=== PATIENT | male | born 1980 | race Caucasian/White ===

== ENCOUNTER → 2017-08-22 | Outpatient (CLI) | payer BC ==
[~2017-08-22] MED LIST: CONTRAST GIVEN MC PRN; IOHEXOL 180 MG/ML 10 ML VIAL. INT ART ONE; LIDOCAINE 1% Multi-Dose 20 ML VIAL. ID ONE
--- NOTE | 2017-08-22 13:33 | KCIC ---
CT arthrogram of the left wrist HISTORY: Scaphoid fracture. Pain, initially on the radial side, now throughout the wrist. Injury June 18, 2017. TECHNIQUE: Standard axial imaging with multiplanar reformatted images. In addition, dedicated oblique sagittal and oblique coronal images are obtained through the scaphoid. Exposure: One or more of the following individualized dose reduction techniques were utilized for this examination: 1. Automated exposure control 2. Adjustment of the mA and/or kV according to patient size 3. Use of iterative reconstruction technique. FINDINGS: Small cortical fracture at the posterior waist of scaphoid, best seen on the oblique sagittal images, series 615, image 5 and 6. There are several mild serpiginous linear lucencies at the proximal pole of the scaphoid. These does not have the typical appearance of an acute fracture. This could represent some focal osteopenia or possibly atypical subacute fracture. There is no evidence of typical transverse fracture across the scaphoid body. Lucency identified within the distal triquetrum, with loss of definition of the distal and posterior cortex. Considerations include a carpal cyst versus a subacute fracture. No displacement. There is a very small cortical fracture fragment adjacent to the distal lateral capitate, coronal series 604, images 7 and 8. In addition, there is a small coronally oriented subchondral bone defect at the distal capitate articular surface laterally, sagittal series 603, image 17, suspicious for a very small nondisplaced fracture. Borderline widening of the scapholunate interosseous distance. There appears to be an increased scapholunate angle. No evidence of contrast accumulation within or across the scapholunate ligament. No evidence of lunotriquetral ligament tear. The triangular fibrocartilage appears intact. IMPRESSION: 1. Small cortical fracture at the posterior waist of the scaphoid. There are some subtle serpiginous lucencies within the proximal pole of the scaphoid, questionable significance but possibly some additional nondisplaced fractures. There is no evidence of atypical transverse fracture across the scaphoid body. 2. Small cortical fracture at the lateral aspect of the distal capitate bone, with possible additional small intra-articular fracture at the distal lateral articular surface. 3. Ill-defined lucency at the distal triquetrum, could represent carpal cyst versus nondisplaced nonacute fracture. 4. Mild widening of the scapholunate distance with an apparent increase in the scapholunate angle. However, no arthrographic evidence of contrast across the ligament to indicate a tear. Note that a chronic tear with scarring or granulation can prevent contrast transit however. Electronically signed by: Wellington Mancera MD (08/22/2017 1:29 PM) [email or web address]
--- NOTE | 2017-08-22 13:36 | KCIC ---
PROCEDURE Left?wrist injection using fluoroscopic guidance, prior to CT HISTORY: Pain TECHNIQUE The procedure was explained to the patient as were potential risks, including among others infection, bleeding or allergic reaction. All questions were answered. Informed written consent was obtained. The wrist was prepped and draped in the usual sterile manner. Following administration of local anesthetic with 1% lidocaine , a 25 gauge needle was advanced into the radiocarpal space. Following negative aspiration, 2 cc of a solution of 5cc 1 percent lidocaine and 15 cc Omnipaque 180 intravenous contrast was injected without difficulty during dynamic digital subtraction imaging. The needle was removed. Additional post exercise images were obtained. The procedure was then repeated, with injection of 1 cc of contrast mixture into the distal radioulnar joint. There was good hemostasis at the injection site. The patient left in stable condition without immediate complication. The patient was given postprocedural instructions, and instructed to contact us or the ER if there are any complications. FLUOROSCOPY TIME: 1 minute 37 seconds. No abnormal contrast transit was detected during the procedure. Electronically signed by: Wellington Mancera MD (08/22/2017 1:32 PM) [id number]
== END | disposition home or self-care (01) ==
LOC: KCIC 10:02
PROVIDERS: ATTEND Plastic Surgery
DX: S62.002D Unspecified fracture of navicular [scaphoid] bone of left wrist, subsequent encounter for fracture with routine healing (principal); X58.XXXD Exposure to other specified factors, subsequent encounter
CPT/HCPCS: 73115; 73201

== ENCOUNTER → 2017-09-08 | Outpatient (CLI) | payer BC ==
[2017-09-08] MEDS: GADOBUTROL 10 MMOL/10 ML VIAL IV (16:23)
== END | disposition home or self-care (01) ==
LOC: KCIC MRI 15:03
DX: S63.592A Other specified sprain of left wrist, initial encounter (principal); X58.XXXA Exposure to other specified factors, initial encounter; Y93.89 Activity, other specified; Y92.89 Other specified places as the place of occurrence of the external cause; Y99.8 Other external cause status
CPT/HCPCS: 73223; A9585